=== PATIENT | male | born 1985 | race Caucasian/White ===

== ENCOUNTER 2017-01-10 16:01 | Emergency (ER) | payer OTHER ==
--- NOTE | 2017-01-10 16:14 | ED Physician Documentation ---
PD HPI HEAD INJURY - Stated complaint Stated Complaint: FACE LAC - History obtained from History obtained from: Patient - History of Present Illness Mechanism of head injury: Blow (he accidentally struck himself with tool that slipped. Denies injury to eye, but lac to medial right eyebrow.) Where head injury occurred: Home Timing - onset: Today Location of injury: Right, Front (medial eyebrow) Associated symptoms: Other (juana visual changes). No: LOC, AMS Symptoms worsen with: Palpation Similar symptoms before: Has not had sx before Recently seen: Not recently seen Review of Systems Constitutional: denies: Fever, Chills Eyes: denies: Loss of vision, Decreased vision Neurologic: denies: Focal weakness, Numbness, Confused, Altered mental status, Headache, Head injury PD PAST MEDICAL HISTORY - Past Medical History Neuro: None - Present Medications Home Medications: Ambulatory Orders Medication Instructions Recorded Confirmed No Known Home Medications [No 01/10/17 01/10/17 Known Home Medications] - Allergies Allergies/Adverse Reactions: Allergies Allergy/AdvReac Type Severity Reaction Status Date / Time Penicillins Allergy Unknown Verified 01/10/17 16:17 PD ED PE NORMAL - Vitals Vital signs reviewed: Yes - General General: Alert and oriented X 3, No acute distress, Well developed/nourished - HEENT HEENT: PERRL, EOMI, Other (right medial eyebrow with 1.5 cm lac that has mild bleeding and opens with eyebrow raising. No FB. ) Results - Vitals Vitals: Vital Signs - 24 hr 01/10/17 16:10 Temperature 36.7 C Heart Rate 59 L Respiratory 14 Rate Blood Pressure 133/53 H O2 Saturation 100 Oxygen O2 Source Room air Procedures - Laceration (location) right medial eyebrow Length in cm: 1.5 Wound type: Linear, Into subcut fat, Clean Neurovascular status: Sensory intact, Motor intact Anesthesia: Lidocaine 1% with epi Wound Preparation: Other (cleansed with tap water) Skin layer closure: Nylon, Running, Size #-0 - enter number (6), Sutures - enter # (7) Other: Patient tolerated well, No complications, Neurovascular intact, Tetanus UTD Complexity: Simple PD MEDICAL DECISION MAKING - ED course Complexity details: considered differential (the lac opens widely with eyebrow raising, so I don't think tape/glue would work. ), d/w patient Departure - Departure Disposition: 01 Home, Self Care Clinical Impression: Eyebrow laceration Qualifiers: Encounter type: initial encounter Laterality: right Qualified Code(s): S01.111A - Laceration without foreign body of right eyelid and periocular area, initial encounter Condition: Stable Record reviewed to determine appropriate education?: Yes Instructions: ED Laceration Facial Sutr Tape Follow-Up: DEBO Snyder [Provider Group] Comments: It is okay to wash and shower. Clean off the wound twice a day with soap and water, or peroxide and water. Apply some antibiotic ointment to it to keep it moist. Also to watch for signs of infection such as purulence, redness or increasing pain. Return to your primary care or the ER at the specified time for suture removal. Suture removal in 8 days. Tylenol or Ibuprofen as needed for pains.
[2017-01-10 16:18] VITALS: BP 133/53
== END 2017-01-10 16:43 | disposition home or self-care (01) ==
LOC: ED 16:01
DX: S01.111A Laceration without foreign body of right eyelid and periocular area, initial encounter (principal); W22.8XXA Striking against or struck by other objects, initial encounter; Y92.009 Unspecified place in unspecified non-institutional (private) residence as the place of occurrence of the external cause
CPT/HCPCS: 12011; 99282; 99283

== ENCOUNTER 2018-02-24 22:01 | Emergency (ER) | payer OTHER ==
--- NOTE | 2018-02-24 23:48 | ED Physician Documentation ---
PD HPI UPPER EXT INJURY - Stated complaint Stated Complaint: R FINGER INJ - Chief complaint Chief Complaint: Ext Problem - History obtained from History obtained from: Patient - History of Present Illness Location: Right, Finger Type of injury: Blunt / blow Timing - onset: Enter time (19:00), Today Timing - details: Abrupt onset Pain level now: 6 Improved by: Rest, Ice Worsened by: Moving, Palpating Associated symptoms: Swelling, Discolored Similar symptoms before: Has not had sx before Recently seen: Not recently seen - Additonal information Additional information: while playing baseball this evening, struck by ball to tips of right 3rd and 4th digits, c/o pain in these digits at tips, predominantly 4th fingertip. patient is right hand dominant Review of Systems Musculoskeletal: reports: Extremity pain, Extremity swelling Neurologic: denies: Focal weakness, Numbness PD PAST MEDICAL HISTORY - Past Medical History Past Medical History: No - Past Surgical History Past Surgical History: Yes - Present Medications Home Medications: Ambulatory Orders Medication Instructions Recorded Confirmed HYDROcod/ACETAM 5/325 [Advance 5/325] 1 - 2 ea PO Q6H PRN #15 tablet 02/25/18 - Allergies Allergies/Adverse Reactions: Allergies Allergy/AdvReac Type Severity Reaction Status Date / Time Penicillins Allergy Unknown Verified 02/24/18 22:07 - Social History Does the pt smoke?: No Smoking Status: Never smoker Does the pt drink ETOH?: Yes Does the pt have substance abuse?: No - Immunizations Immunizations are current?: Yes - POLST Patient has POLST: No PD ED PE NORMAL - Vitals Vital signs reviewed: Yes - General General: Alert and oriented X 3, No acute distress, Well developed/nourished - Neuro Neuro: No motor deficit, No sensory deficit PD ED PE EXPANDED - Extremities SHERYL UE/Hands Visual: 1 - bruising, swelling, tenderness Results - Vitals Vitals: Oxygen O2 Source Room air - Rads (name of study) right 4th digit xrays Radiology: Prelim report reviewed, See rad report PD MEDICAL DECISION MAKING - ED course Complexity details: reviewed results, re-evaluated patient, considered differential, d/w patient - Sepsis Event Vital Signs: Oxygen O2 Source Room air Departure - Departure Disposition: 01 Home, Self Care Clinical Impression: Closed fracture of tuft of distal phalanx of finger Condition: Good Instructions: ED Fx Finger Closed Follow-Up: DEBO Snyder [Provider Group] (3-5 days) Prescriptions: HYDROcod/ACETAM 5/325 [Advance 5/325] 1 - 2 ea PO Q6H PRN #15 tablet PRN Reason: Pain Discharge Date/Time: 02/25/18 01:16
[2018-02-24] MEDS ORDERED: HYDROcod/ACETAM 5/325 MG TABLET PO STA (23:53)
--- NOTE | 2018-02-25 00:49 | XRAY Report ---
Procedure Date: 02/25/2018 Accession Number: [id number] / [id number] Procedure: XR - Finger(s) RT CPT Code: FULL RESULT: EXAM: RIGHT THIRD AND FOURTH DIGIT RADIOGRAPHY EXAM DATE: 02/25/2018 12:33 AM. CLINICAL HISTORY: Injuries to the third and fourth digits , pain. COMPARISON: None. TECHNIQUE: 3 views. FINDINGS: Bones: Mildly displaced distal tuft fracture of the ring finger. No middle finger fracture seen. Joints: Normal. No subluxations. Soft Tissues: Normal. No soft tissue swelling. IMPRESSION: Mildly displaced distal tuft fracture of the ring finger. No middle finger fracture seen. [facility]
[2018-02-25] MEDS ORDERED: IBUPROFEN 600 MG TABLET PO STA (00:55)
[2018-02-25 01:25] VITALS: BP 121/68
== END 2018-02-25 01:16 | disposition home or self-care (01) ==
LOC: ED 22:01
DX: S62.634A Displaced fracture of distal phalanx of right ring finger, initial encounter for closed fracture (principal); W20.8XXA Other cause of strike by thrown, projected or falling object, initial encounter; Y93.64 Activity, baseball
CPT/HCPCS: 73140; 99283; A9270

== ENCOUNTER 2018-06-02 11:57 | Outpatient (CLI) | payer OTHER ==
[2018-06-02] MEDS ORDERED: GADOPENTETATE DIMEGLUMINE 5 ML VIAL IVP ONE (12:08)
[2018-06-02] MEDS ORDERED: IOTHALAMATE MEGLUMINE 50 ML VIAL ONE (12:08)
== END 2018-06-02 11:58 | disposition home or self-care (01) ==
LOC: DI 11:57
PROVIDERS: ATTEND Physician Assistant
DX: M25.561 Pain in right knee (principal)

== ENCOUNTER 2018-06-18 07:26 | Outpatient (CLI) | payer OTHER ==
--- NOTE | 2018-06-18 16:53 | MRI Report ---
Reason: RT KNEE PAIN Procedure Date: 06/18/2018 Accession Number: [id number] / [id number] Procedure: MRI - Knee RT W/O CPT Code: FULL RESULT: EXAM: RIGHT KNEE MRI WITHOUT CONTRAST EXAM DATE: 06/18/2018 08:03 AM. CLINICAL HISTORY: Right knee pain and laxity. COMPARISON: None. TECHNIQUE: Multiplanar, multisequence T1-weighted and fluid-sensitive sequences of the knee without contrast. Other: None. FINDINGS: Bones: No fractures or subluxations. No marrow edema. No bone lesions. Articular Cartilage: Unremarkable. Medial Meniscus: The medial meniscus is intact. Lateral Meniscus: There is a complex bucket-handle tear of the lateral meniscus. Part of the lateral meniscus is displaced medially within the lateral joint compartment. Cruciate Ligaments: Sprain of the anterior cruciate ligament. Posterior cruciate ligament is unremarkable. Collateral Ligaments: The medial collateral and lateral collateral ligamentous structures are intact. Tendons: The quadriceps, patellar, semimembranosus, and popliteus tendons are unremarkable. Musculature: No edema or fatty atrophy. Other: No effusion. No popliteal cyst. No loose bodies. The medial and lateral retinacula are intact. Trace amount of fluid at the prepatellar bursa. IMPRESSION: 1. Complex bucket-handle tear of the lateral meniscus. 2. Sprain of the anterior cruciate ligament. 3. Trace amount of fluid at the prepatellar bursa. [facility] MUSCULOSKELETAL RADIOLOGY SECTION
== END 2018-06-18 07:27 | disposition home or self-care (01) ==
LOC: DI 07:26
PROVIDERS: ATTEND Physician Assistant
DX: S83.271A Complex tear of lateral meniscus, current injury, right knee, initial encounter (principal); S83.511A Sprain of anterior cruciate ligament of right knee, initial encounter

== ENCOUNTER 2018-07-08 11:45 | Day surgery (SDC) | payer OTHER ==
[~2018-07-08 11:45] MED LIST: ceFAZolin 2 GM/50 ML 2 GM/50 ML BAG IV ONE
[2018-07-08] MEDS ORDERED: ceFAZolin 2 GM/50 ML 2 GM/50 ML BAG IV ONE (12:00)
[2018-07-08] MEDS ORDERED: LACTATED RINGERS 1,000 ML IV ONE ×2 (12:13→15:41)
--- NOTE | 2018-07-08 12:44 | ANESTHESIA ---
Pre-Anesthesia VS, & Labs - Diagnosis right knee meniscal tear - Procedure right knee arthroscopy with meniscal debridement Vital Signs: Temp Pulse Resp BP Pulse Ox 36.5 C 50 L 16 141/84 H 98 07/08/18 12:02 07/08/18 12:02 07/08/18 12:02 07/08/18 12:02 07/08/18 12:02 Height 5 ft 8 in Weight (kg) 81.65 kg Body Mass Index 27.5 - NPO >8 hours Home Medications and Allergies Home Medications: Ambulatory Orders No Known Home Medications 07/06/18 No Known Home Medications 07/06/18 Allergies/Adverse Reactions: Allergies Allergy/AdvReac Type Severity Reaction Status Date / Time doxycycline Allergy Hives Verified 07/06/18 12:57 Penicillins Allergy Hives Verified 07/06/18 12:57 Anes History & Medical History - Anesthetic History Anesthesia Complications: reports: No previous complications Family history of Anesthesia Complications: Denies Family history of Malignant Hyperthermia: Denies - Medical History Cardiovascular: reports: None Pulmonary: reports: None Gastrointestinal: reports: None Urinary: reports: None Musculoskeletal: reports: Other Endocrine/Autoimmune: reports: None Skin: reports: None Smoking Status: Never smoker - Surgical History Eyes Ears Nose Throat (EENT): Other Exam General: Alert Dental: WNL Mouth Openin Fingerbreadth Mallampati classification: II Thyromental Distance: greater than 6 cm Respiratory: Lungs clear, Normal breath sounds, No respiratory distress, No acc essory muscle use Cardiovascular: Regular rate, Normal S1, Normal S2, No murmurs Mental/Cognitive Status: Alert/Oriented X3, Normal for patient Plan Anesthesia Type: General Consent for Procedure(s) Verified and Reviewed: Yes Code Status: Attempt Resuscitation ASA classification: 1-Healthy patient Is this case an emergency?: No
[2018-07-08] MEDS ORDERED: BUPIVACAINE 0.25% PF 30 ML VIAL ONE (12:46)
[2018-07-08] MEDS ORDERED: EPINEPHrine 1 MG/ML AMP ONE ×2 (12:53→12:56)
[2018-07-08] MEDS ORDERED: BUPIVACAINE 0.25% PF 30 ML VIAL SUBQ ONE ×2 (13:58)
[2018-07-08] MEDS ORDERED: EPINEPHrine 1 MG/ML AMP IR ONE ×2 (14:00)
[2018-07-08] MEDS ORDERED: MIDAZOLAM 2 MG/2 ML VIAL IVP ONE (14:16)
[2018-07-08] MEDS ORDERED: PROPOFOL 200 MG/20 ML VIAL IVP ONE (14:16)
[2018-07-08] MEDS ORDERED: LIDOCAINE-MPF 2% 5 ML VIAL IM ONE (14:16)
[2018-07-08] MEDS ORDERED: KETOROLAC 30 MG/ML VIAL IVP ONE (14:16)
[2018-07-08] MEDS ORDERED: ONDANSETRON 4 MG/2 ML VIAL IVP ONE (14:16)
[2018-07-08] MEDS ORDERED: fentaNYL 100 MCG/2 ML VIAL IVP ONE (14:16)
[2018-07-08] MEDS ORDERED: oxyCODONE 5 MG TABLET PO PRN (15:07)
[2018-07-08] MEDS ORDERED: ONDANSETRON 4 MG/2 ML VIAL IVP PRN (15:07)
[2018-07-08] MEDS: HYDROmorphone 1 MG/ML CARPUJECT ONE ×2 (15:12→15:16)
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
[2018-07-08] MEDS: fentaNYL 100 MCG/2 ML VIAL ONE ×2 (15:26→15:35)
[2018-07-08] MEDS ORDERED: oxyCODONE 5 MG TABLET ONE (16:34)
[2018-07-08 17:04] VITALS: BP 123/68
== END 2018-07-08 11:46 | disposition home or self-care (01) ==
LOC: SDS 11:45
PROVIDERS: ATTEND Orthopaedic Surgery
PROC: 0SBC4ZZ Excision of Right Knee Joint, Percutaneous Endoscopic Approach (ICD-10-PCS; principal; 2018-07-08 13:00)
DX: S83.251A Bucket-handle tear of lateral meniscus, current injury, right knee, initial encounter (principal); S83.521A Sprain of posterior cruciate ligament of right knee, initial encounter
CPT/HCPCS: 29881; A9270; J0690; J1170; J7120

== ENCOUNTER 2022-04-23 11:29 | Outpatient (CLI) | payer OTHER ==
[2022-04-23 11:51] VITALS: BP 138/88
--- NOTE | 2022-04-23 11:51 | SLEEP CARE CONSULTATION ---
Information from patient questionnaire entered by Neeraj Perez. I have reviewed and concur with the information entered by Neeraj Perez. This document represents the service I personally performed and the decisions made by , Jennifer Rodriges ARNP. History of Present Illness Service Date and Time: 04/23/2022 1129 Initial [facility] Sleepiness Scale score: 10 (03/23/2022) Current [facility] Sleepiness Scale score: 16 (04/23/22) Additional HPI information: FRANKLIN SELBY returns for follow up and results of the recently performed polysomnography. The patient was informed of the following findings: No significant sleep disordered breathing with an average AHI of 4.7 and teri oxygen saturation of 82%. Patient had a slightly elevated supine AHI of 5.5 and a light snore. There is also moderate periodic leg movements of sleep not associated with sleep fragmentation. I explained the pathophysiology behind obstructive sleep apnea. Patient does not have sleep apnea and was advised how weight gain could increase the risk of developing sleep apnea in the future. Patient does not have significant sleep disordered breathing but has elevated AHI in supine position so advised positional therapy. Methods to achieve positional management therapy were discussed; such as, positioning with pillows, wearing a T-shirt with tennis balls sewn into the back and commercially available products. Patient has light snoring. Snoring can be reduced by weight loss. Weight loss is best achieved with diet consult. Patient instructed to contact PCP for referral. Snoring can also be treated with an oral appliance from a dentist. Advised to check insurance coverage. In addition, an ENT evaluation can be do to see if other treatment is indicated. Patient was cautioned about risks of drowsy driving until sleepiness symptoms resolve. Sleep Study - Results Type of Sleep Study: Polysomnography (DONE 04/01/22) Prior sleep studies: Yes Polysomnography/Home Sleep Study results: IMPRESSION: The quality of the study is good. The patient had normal sleep efficiency. The sleep architecture was normal as well. Respiratory monitoring showed no significant sleep disordered breathing (AHI = 4.7) or hypoxia (teri oxygen saturation of 82% and only 0.6% to the total sleep time was spent with oxygen saturation below 90%). The few respiratory events occurred almost exclusively during supine sleep (supine AHI = 5.5; nonsupine = 0.76). Snore was light in intensity. There was moderate periodic leg movement of sleep not associated with sleep fragmentation. Cardiac rhythm was normal sinus rhythm without significant arrhythmia. No abnormal behavior (parasomnia) observed during the night. CONCLUSIONS and RECOMMENDATIONS: 1. The patient has no significant obstructive sleep apnea-hypopnea. However, because the supine AHI was slightly elevated at 5.5, the patient should avoid sleeping supine. 2. Periodic leg movement (ICD G47.61), moderate, treatment may be indicated. Clinical correlation advised. Allergies and Home Medications Home medication list reviewed: Yes (no changes) Allergy and home medication list: Allergies doxycycline Allergy (Verified 03/14/20 14:24) Hives Penicillins Allergy (Verified 03/14/20 14:24) Hives Review of Systems Review of systems same as previous: Yes (no changes) Physical Exam Vital signs obtained and entered by: MARY BOWDEN Blood Pressure: 138/88 (LEFT ARM ) Cuff size: regular Heart Rate: 67 O2 Saturation: 97 Height: 5 ft 8 in Weight: 203 lb Body Mass Index: 30.9 BMI Classification: Obese Impression and Plan 1. Snoring but no significant sleep disordered breathing. Patient did have slight elevation of his supine AHI at 5.5 and was advised to avoid sleeping supine. Patient advised that often weight loss will reduce snoring as well as apnea risk. Patient concerned about waking up at night. I advised him that controlling his apneas can reduce the nightly wake ups. He states his shoulders get sore when he sleeps on his sides. I advised trying a high wedge pillow to reduce laying flat on his back and pressure on his shoulders. He voiced understanding. 2. Periodic limb movement, moderate, that did not fragment patients sleep. Periodic limb movement of sleep (PLMS) is characterized by episodes of repetitive limb movements that occur during sleep and usually involve the lower limbs. Caffeine can aggravate PLMS and should be avoided. Sleep hygiene methods can also improve sleep as well as lifestyle changes such as regular exercise. Patient was advised that no treatment is needed at this time. If symptoms increase, then further evaluation is indicated. * Avoid sleeping supine * Attempt to lose weight * Avoid alcohol consumption near bedtime * The patient is cautioned about driving until sleepiness is completely resolved. * Return as needed for follow up. Counseling Topics: Sleeping position, Weight loss health impact Visit Type: In Office Time Spent with Patient (minutes): 13 Provider Statement: I spent 100% of the Face to Face Visit with the patient with greater than 50% spent counseling the patient and coordination of care.
== END 2022-04-23 11:30 | disposition home or self-care (01) ==
LOC: SC 11:29
PROVIDERS: ATTEND Nurse Practitioner Family
DX: R06.83 Snoring (principal); G47.61 Periodic limb movement disorder; E66.9 Obesity, unspecified; Z68.30 Body mass index [BMI] 30.0-30.9, adult
CPT/HCPCS: 99212

== ENCOUNTER 2023-12-21 13:21 | Emergency (ER) | payer OTHER ==
[2023-12-21 14:09] VITALS: O2SAT 99
[2023-12-21] MEDS: SODIUM CHLORIDE 0.9% 1,000 ML IV STA (15:01)
[2023-12-21 15:03] LABS: BASOPHILS % (AUTO) 0.3 %; EOSINOPHILS % (AUTO) 0.3 %; HCT - HEMATOCRIT 47.2 % (42.0-52.0); LYMPHOCYTES # (AUTO) 2.3 10^3/uL (1.5-3.5); MEAN CORPUSCULAR HEMOGLOBIN 31.1 pg (27.0-31.0); MEAN CORPUSCULAR HGB CONC 33.9 g/dL (32.0-36.0); MEAN CORPUSCULAR VOLUME 91.7 fL (80.0-94.0); MEAN PLATELET VOLUME 10.3 fL (7.4-11.4); MONOCYTES # (AUTO) 0.6 10^3/uL (0.0-1.0); MONOCYTES % (AUTO) 8.5 %; NEUTROPHILS # (AUTO) 4.1 10^3/uL (1.5-6.6); NEUTROPHILS % (AUTO) 58.8 %; PLT - PLATELET COUNT 271 10^3/uL (130-450); RED BLOOD COUNT 5.15 10^6/uL (4.70-6.10); RED CELL DISTRIBUTION WIDTH 12.9 % (12.0-15.0)
[2023-12-21 15:25] LABS: POTASSIUM 3.8 mmol/L (3.5-4.5)
[2023-12-21] MEDS ORDERED: iohexoL-300 100 ML VIAL ONE (15:26)
[2023-12-21] MEDS: iohexoL-300 100 ML VIAL IVP ONE (15:48)
--- NOTE | 2023-12-21 16:01 | ED Physician Documentation ---
PD HPI HEADACHE - Stated complaint Stated Complaint: CARO,NAUSEA,BLURRED VISION - Chief complaint Chief Complaint: Neuro - History obtained from History obtained from: Patient - Additional information Additional information: Patient is a 38-year-old male without any significant past medical history presenting for evaluation of headaches he has been having for the past 2 days. He stated that yesterday he went to the gym and had not eaten beforehand. As he was working out he started developing a gradual headache from the back of his head radiating forward. He denies any associated neck stiffness, fevers, nausea or vomiting. He states he stopped working out and went home and gradually got better. Today he made sure to eat before going to the gym and again was working at around lunchtime. He states he was doing some back exercises when again he started developing a mild headache. He denies that they were sudden in onset or intensity. He denies that the headache today is the worst headache he has ever had. He does not have a history of migraines. No head injury. No family history of aneurysms. Does not take any blood thinners.Reports currently that the pain is mild at a 2-3. Review of Systems Constitutional: denies: Fever Cardiac: denies: Chest pain / pressure Respiratory: denies: Dyspnea GI: denies: Abdominal Pain Musculoskeletal: denies: Neck pain, Back pain Neurologic: reports: Headache. denies: Syncope, Head injury PD PAST MEDICAL HISTORY - Past Medical History Past Medical History: Yes Cardiovascular: None Respiratory: None Neuro: None Endocrine/Autoimmune: None GI: None : None HEENT: None Psych: None Musculoskeletal: Other Derm: None - Past Surgical History Past Surgical History: Yes Ortho: Arthroscopic surgery HEENT: Other - Present Medications Home Medications: Ambulatory Orders Medication Instructions Recorded Confirmed Dextroamphetamine/Amphetamine 10 mg PO DAILY 12/21/23 12/21/23 [Adderall 10 mg Tablet] - Allergies Allergies/Adverse Reactions: Allergies Allergy/AdvReac Type Severity Reaction Status Date / Time doxycycline Allergy Hives Verified 12/21/23 13:33 Penicillins Allergy Hives Verified 12/21/23 13:33 - Social History Does the pt smoke?: No Smoking Status: Never smoker Does the pt drink ETOH?: Yes Does the pt have substance abuse?: No - Immunizations Immunizations are current?: Yes - POLST Patient has POLST: No PD ED PE NORMAL - General General: Alert and oriented X 3, No acute distress, Well developed/nourished - HEENT HEENT: Atraumatic, PERRL, EOMI - Neck Neck: Supple, no meningeal sign, No bony TTP - Cardiac Cardiac: RRR, Strong equal pulses - Respiratory Respiratory: No respiratory distress, Clear bilaterally - Abdomen Abdomen: Normal bowel sounds, Soft, Non tender, Non distended - Derm Derm: Warm and dry - Neuro Neuro: Alert and oriented X 3, 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, No motor deficit, No sensory deficit, Normal speech Results - Vitals Vitals: Vital Signs - 24 hr 12/21/23 12/21/23 13:33 16:57 Temperature 36 C L 36.2 C L Heart Rate 90 88 Respiratory 16 18 Rate Blood Pressure 157/90 H 148/102 H O2 Saturation 99 99 Oxygen O2 Source Room air - Labs Labs: Laboratory Tests 12/21/23 12/21/23 14:57 14:57 WBC 7.0 RBC 5.15 Hgb 16.0 Hct 47.2 MCV 91.7 MCH 31.1 H MCHC 33.9 RDW 12.9 Plt Count 271 MPV 10.3 Neut # (Auto) 4.1 Lymph # (Auto) 2.3 [place] # (Auto) 0.6 Eos # (Auto) 0.0 Baso # (Auto) 0.0 Absolute Nucleated RBC 0.00 Nucleated RBC % 0.0 Sodium 136 Potassium 3.8 Chloride 104 Carbon Dioxide 26 Anion Gap 6.0 BUN 14 Creatinine 1.0 Estimated GFR (MDRD) 85 L Glucose 93 Calcium 10.0 PD Medical Decision Making - ED course Complexity details: reviewed results, d/w patient ED course: Pt presenting for evaluation of headaches occurring during exercise. Denies thunderclap in intensity at onset and today's episode is mild. No neck stiffness. Normal neuro exam. Otherwise well appearing. Given history, imaging warranted and CT head and CT head angio obtained. CBC, BMP without significant findings. CT head negative for ICH/SAH - obtained within 6 hrs of symptoms today. CT head angio negative for aneurysms. Pt feeling better here with IV fluids and toradol. Counseled on need for close follow up if symptoms persist and advised on concerning symptoms to return for. Departure - Departure Disposition: 01 Home, Self Care Clinical Impression: Headache Condition: Stable Instructions: ED Cephalgia Unspecified Comments: CT scan of your head does not show signs of aneurysms or bleeding in your brain as a cause of your headaches. I would recommend making sure you are plenty hydrated and also eating prior to any exercise. If you continue to have headaches and I would recommend close follow-up with your primary care doctor. Return to the ER if you develop any worsening symptoms such as severe headache, weakness or any other concerns. Forms: PCP List Discharge Date/Time: 12/21/23 17:01
--- NOTE | 2023-12-21 16:17 | CT Report ---
PROCEDURE: Head WO INDICATIONS: frequent headaches with exercise TECHNIQUE: Noncontrast 4.5 mm thick angled axial sections acquired from the foramen magnum to the vertex. For r adiation dose reduction, the following was used: automated exposure control, adjustment of mA and/or kV according to patient size. COMPARISON: Correlation is made with the accompanying imaging. FINDINGS: Image quality: There is streak artifact seen through the skull base. CSF spaces: Basal cisterns are patent. No extra-axial fluid collections. Ventricles are normal in size and shape. Brain: No midline shift. No intracranial masses or hemorrhage. Martinez-white matter interface is norm al. Skull and face: Calvarium and visualized facial bones are intact, without suspicious lesions. Sinuses: Visualized sinuses and mastoids are clear. IMPRESSION: No intracranial hemorrhage is seen. No significant intracranial abnormality is seen. To the limits of this noncontrast study, no findings of masses or mass effect can be seen. Reviewed by: Phu Alexis MD on 12/21/2023 3:15 PM LUZ MARIA Approved by: Phu Alexis MD on 12/21/2023 3:15 PM AKROBBIE Station ID: [id number]
--- NOTE | 2023-12-21 16:19 | CT Report ---
PROCEDURE: CT Angio Head INDICATIONS: frequent headaches with exercise CONTRAST: 80ml [id number] TECHNIQUE: After the administration of intravenous contrast, 1 mm thick sections acquired through the [place]. 3-dimensional gupaxaz-qyhuhrkim-qmokycjlho (MIP) and/or volume rendering reformats were acqu ired of the central intracranial vasculature. For radiation dose reduction, the following was used: automated exposure control, adjustment of mA and/or kV according to patient size. COMPARISON: Correlation is made with the accompanying imaging. FINDINGS: Image quality: Limited by bolus timing, with venous contamination. Anterior circulation: The internal carotid arteries demonstrate normal size and intraluminal flow si gnal. Note is made of a diminutive right A1 segment, with a correspondingly robust left A1 segment. This is considered to be a developmental variant of no clinical consequence. The flow within the paired ant erior cerebral arteries is otherwise normal and symmetric. The flow within the middle cerebral arter ies is normal and symmetric. The anterior communicating artery is seen. No stenoses, occlusions, or aneurysms. Posterior circulation: Visualized portions of the vertebral arteries demonstrate normal caliber, and join to form a normal appearing basilar artery. Flow within the posterior cerebral arteries is norm al and symmetric. No aneurysms are seen. CSF spaces: Ventricles are normal in size and shape. Basal cisterns are patent. No extra-axial flu id collections. Brain: No midline shift. No intracranial bleeds or masses. Martinez-white matter interface appears int act. Skull and face: Calvarium and facial bones appear intact, without suspicious lesions. Sinuses: Visualized sinuses and mastoids are clear. IMPRESSION: No significant intracranial arterial abnormality is seen. No aneurysm is detected. Reviewed by: Phu Alexis MD on 12/21/2023 3:18 PM AKDT Approved by: Phu Alexis MD on 12/21/2023 3:18 PM AKDT Station ID: [id number]
[2023-12-21] MEDS: KETOROLAC 30 MG/ML VIAL IVP STA (16:37)
[2023-12-21 16:58] VITALS: BP 148/102
== END 2023-12-21 17:01 | disposition home or self-care (01) ==
LOC: ED 13:21
DX: R51.9 Headache, unspecified (principal)
CPT/HCPCS: 36415; 70450; 70496; 80048; 85025; 96374; 99283; 99284; Q9967